=== PATIENT | male | born 1935 | race Caucasian/White ===

== ENCOUNTER 2020-04-07 15:24 | Inpatient (IN) ==
[2020-04-07] MEDS ORDERED: FAMOTIDINE 20MG IV PUSH 20 MG/5 ML SYR IV STA (15:44)
[2020-04-07] MEDS ORDERED: PANTOprazole 40 MG in SYRINGE 0 ML IV ONE (15:44)
[2020-04-07] MEDS ORDERED: ONDANSETRON INJ 2 MG/ML 2 ML VIAL IV STA (15:44)
[2020-04-07] MEDS ORDERED: SODIUM CHLORIDE 0.9% 500 ML IV SCH (15:45)
[2020-04-07 15:56] LABS: Basophils # (auto) 0.05 K/uL (0-0.2); Basophils % (auto) 0.4 %; Eosinophils # (auto) 0.07 K/uL (0-0.5); Eosinophils % (auto) 0.5 %; Hematocrit (blood only) 27.3 % (42-52); Hemoglobin 9.3 g/dL (14.0-18.0); Immature Granulocytes # (auto) 0.08 K/uL (0.00-0.02); Immature Granulocytes % (auto) 0.6 %; Lymphocytes % (auto) 19.2 %; Mean Corpuscular Hemoglobin 32.4 pg (25-34); Mean Corpuscular Hgb Conc 34.1 g/dL (32-36); Mean Corpuscular Volume 95.1 fL (80-100); Mean Platelet Volume 10.4 fL (7.4-10.4); Monocytes # (auto) 0.87 K/uL (0.11-0.59); Monocytes % (auto) 6.7 %; Neutrophils # (auto) 9.45 K/uL (1.4-6.5); Neutrophils % (auto) 72.6 %; Platelet Count 216 K/uL (130-400); RDW Coefficient of Variation 15.4 % (11.5-14.5); RDW Standard Deviation 53.5 fL (36.4-46.3); Red Blood Count 2.87 M/uL (4.7-6.1); White Blood Count 13.02 K/uL (4.8-10.8)
[2020-04-07 16:06] LABS: INR 1.2 (0.9-1.1); Partial Thromboplastin Ratio 0.9; Partial Thromboplastin Time 25.1 Seconds (21.0-31.0); Prothrombin Time 12.4 Seconds (9.0-12.0)
--- NOTE | 2020-04-07 16:27 | Emergency Department Note ---
Impression & Plan Acute upper gastrointestinal bleeding, Anemia, Elevated troponin I level ED Provider Note NAME: DAKOTA DELATORRE AGE: 85 SEX: M : 1935 ARRIVES VIA: Ambulance INFORMANT: Patient, ED PROVIDER(S): Todd Beckman DO CHIEF COMPLAINT: Vomiting HPI: The patient is an 85-year-old male who presented to the emergency department for upper abdominal pain and vomiting blood. The patient was scheduled for a procedure by the [facility] clinic. He presents emergency department today after having an episode of emesis x2 and also hematemesis. The patient denies having any nausea or vomiting at this time. He denies having any chest pain or difficulty breathing. He has been noticing that he is been getting short of breath with exertion. He denies having any black or bloody bowel movements. He is not been using [id number] medication such as NSAIDs at this time. The patient states his pain is mild at this time. ROS: See above HPI for pertinent positives & negatives. A total of 10 systems reviewed and were otherwise negative. PAST MEDICAL HISTORY: See Below PAST SURGICAL HISTORY: See Below FAMILY HISTORY: See Below SOCIAL HISTORY: See Below HOME MEDICATIONS: See Below ALLERGIES: See Below VITALS: See Below PHYSICAL EXAMINATION: GENERAL: Patient is awake alert in no acute distress patient is resting comfortably and showing no signs of anxiety EYES: The conjunctivae are pale. The pupils are round and reactive. EARS, NOSE, MOUTH AND THROAT: The nose is without any evidence of any deformity. NECK: The neck is nontender and supple. RESPIRATORY: Normal respiratory effort is noted there is no evidence of wheezing rhonchi or rales CARDIOVASCULAR: Regular rate and rhythm noted there no murmurs rubs or gallops normal S1 normal S2. GASTROINTESTINAL: The abdomen is soft. Abdomen is nontender. Rectal exam revealed brown stool which was strongly heme positive. MUSCULOSKELETAL/EXTREMITIES: There is no evidence of gross deformity full range of motion is noted in the hips and shoulders. SKIN: There is no obvious evidence of any rash. Skin was pale cool and dry. There is pedal edema bilaterally. NEUROLOGIC: Patient is awake alert and oriented x3 strength is symmetric patellar reflexes are 2+ bilaterally MEDICAL DECISION MAKING: The patient is an 85-year-old male who presented to the emergency department after having an episode of hematemesis. He was experiencing upper abdominal pain and was following up with the DC clinic. He was scheduled for an ultrasound. The patient had an episode of hematemesis with clots prior to arrival. The patient was found to have heme positive stool. He was anemic. Initially he was tachycardic and treated with IV fluids. I discussed the patient's laboratory and radiographic studies with him. He was also treated with proton pump inhibitors and H2 blockers. He was feeling much better on subsequent reevaluation. Given his elevated troponin I do feel the patient may require inpatient management. For this reason I discussed his case with the on- call [facility]. They have agreed to evaluate the patient in the emergency department for further management and disposition. Triage Nursing notes reviewed. Prior medical records reviewed Vital Signs: reviewed and remarkable for tachycardia. Differential diagnosis: Diverticulosis, AVM, coagulopathy, colitis, inflammatory bowel disease, malignancy, Rolanda-Griffith tear, esophagitis, peptic ulcer disease, variceal bleed, gastritis, epistaxis, fissure, hemorrhoids, as well as other pathologies. ER treatment provided: See below Diagnostics interpreted by me: ECG: EKG was obtained in the emergency department. My interpretation is normal sinus rhythm at 83 bpm. There is no ectopy. There is no acute ST segment abnormalities. There is no previous tracing for comparison. Cardiac Monitoring: An order was placed for continuous cardiac monitoring. The monitor shows a rate of 98 with sinus rhythm. Laboratory studies: As stated above and show below. Imaging studies: See below Consultation(s): 1720: I discussed this case with Dee who is on-call for the [facility] group. Past Med/Surg History Surgical History History of hip replacement Social History (Updated 04/07/20 @ 18:05 by Sharon Kumar PA-C) Smoking Status: Never smoker Hx Alcohol Use: No Hx Substance Use: No Preferred Language: Czech Communication Ability: Effective Milieu Counselor Required: Yes Current Living Situation: Spouse Feels Safe at Home: Yes Safety Concerns: Feels Safe At This Time Allergies Allergies Allergy/AdvReac Type Severity Reaction Status Date / Time No Known Allergies Allergy Unverified 04/07/20 19:09 Home Meds Home Medications Medication Instructions Recorded Confirmed No Known Home Medications 04/07/20 04/07/20 Results & Data (ED) Vital Signs Vital Signs - 24 hr 04/07/20 15:31 04/07/20 15:38 04/07/20 15:40 Temperature Temperature Source Pulse Rate 81 83 83 Pulse Rate from SpO2 Sensor 85 83 83 Respiratory Rate 15 17 18 Respiratory Effort / Characteristics Respiratory Depth Blood Pressure 101/59 L Blood Pressure Mean 73 Pulse Oximetry 100 98 97 Oxygen Delivery Method Sepsis Recent Fever Within 48 Hours Sepsis New/Unexplained Change in Mental Status Sepsis Action Taken by Nursing 04/07/20 15:45 04/07/20 15:50 04/07/20 15:53 Temperature 36.7 C Temperature Source Oral Pulse Rate 80 78 Pulse Rate from SpO2 Sensor 78 Respiratory Rate 20 15 Respiratory Effort / Characteristics Non-Labored Respiratory Depth Normal Blood Pressure 101/59 L Blood Pressure Mean 73 Pulse Oximetry 100 99 97 Oxygen Delivery Method Room Air Room Air Sepsis Recent Fever Within 48 Hours No Sepsis New/Unexplained Change in Mental Status No Sepsis Action Taken by Nursing No Action Required 04/07/20 16:00 04/07/20 16:10 04/07/20 16:20 Temperature Temperature Source Pulse Rate 89 82 81 Pulse Rate from SpO2 Sensor 81 Respiratory Rate 20 20 15 Respiratory Effort / Characteristics Respiratory Depth Blood Pressure 114/57 L Blood Pressure Mean 76 Pulse Oximetry 98 Oxygen Delivery Method Sepsis Recent Fever Within 48 Hours Sepsis New/Unexplained Change in Mental Status Sepsis Action Taken by Nursing 04/07/20 16:22 04/07/20 16:30 04/07/20 16:31 Temperature Temperature Source Pulse Rate 79 82 82 Pulse Rate from SpO2 Sensor 79 83 82 Respiratory Rate 15 18 18 Respiratory Effort / Characteristics Respiratory Depth Blood Pressure 114/57 L 111/62 Blood Pressure Mean 76 86 Pulse Oximetry 98 99 98 Oxygen Delivery Method Sepsis Recent Fever Within 48 Hours Sepsis New/Unexplained Change in Mental Status Sepsis Action Taken by Nursing 04/07/20 16:40 04/07/20 16:50 04/07/20 17:00 Temperature Temperature Source Pulse Rate 83 80 Pulse Rate from SpO2 Sensor 80 Respiratory Rate 19 20 16 Respiratory Effort / Characteristics Respiratory Depth Blood Pressure 120/66 Blood Pressure Mean 80 Pulse Oximetry 98 Oxygen Delivery Method Sepsis Recent Fever Within 48 Hours Sepsis New/Unexplained Change in Mental Status Sepsis Action Taken by Nursing 04/07/20 17:01 04/07/20 17:10 04/07/20 17:20 Temperature Temperature Source Pulse Rate 80 79 78 Pulse Rate from SpO2 Sensor 80 81 81 Respiratory Rate 16 14 21 Respiratory Effort / Characteristics Respiratory Depth Blood Pressure Blood Pressure Mean Pulse Oximetry 97 97 97 Oxygen Delivery Method Sepsis Recent Fever Within 48 Hours Sepsis New/Unexplained Change in Mental Status Sepsis Action Taken by Nursing 04/07/20 17:30 04/07/20 17:31 04/07/20 17:40 Temperature Temperature Source Pulse Rate 85 85 86 Pulse Rate from SpO2 Sensor 88 85 92 H Respiratory Rate 20 22 22 Respiratory Effort / Characteristics Respiratory Depth Blood Pressure 133/72 Blood Pressure Mean 90 Pulse Oximetry 94 99 Oxygen Delivery Method Sepsis Recent Fever Within 48 Hours Sepsis New/Unexplained Change in Mental Status Sepsis Action Taken by Nursing 04/07/20 17:50 Temperature Temperature Source Pulse Rate 92 H Pulse Rate from SpO2 Sensor 87 Respiratory Rate 24 Respiratory Effort / Characteristics Respiratory Depth Blood Pressure Blood Pressure Mean Pulse Oximetry Oxygen Delivery Method Sepsis Recent Fever Within 48 Hours Sepsis New/Unexplained Change in Mental Status Sepsis Action Taken by Snf Medications Current Medication List: was personally reviewed by me Laboratory Data Attestation: I reviewed the patient's lab results. Result diagrams: 04/07/20 21:55 04/07/20 16:07 Lab Results 04/07/20 04/07/20 04/07/20 Range/Units 15:34 15:34 16:07 WBC 13.02 H (4.8-10.8) K/uL RBC 2.87 L (4.7-6.1) M/uL Hgb 9.3 L (14.0-18.0) g/dL Hct 27.3 L (42-52) % MCV 95.1 (80-100) fL MCH 32.4 (25-34) pg MCHC 34.1 (32-36) g/dL RDW Std Deviation 53.5 H (36.4-46.3) fL RDW Coeff of Enma 15.4 H (11.5-14.5) % Plt Count 216 (130-400) K/uL MPV 10.4 (7.4-10.4) fL Immature Gran % (Auto) 0.6 % Neut % (Auto) 72.6 % Lymph % (Auto) 19.2 % Gilmer % (Auto) 6.7 % Eos % (Auto) 0.5 % Baso % (Auto) 0.4 % Neut # (Auto) 9.45 H (1.4-6.5) K/uL Lymph # (Auto) 2.50 (1.2-3.4) K/uL Gilmer # (Auto) 0.87 H (0.11-0.59) K/uL Eos # (Auto) 0.07 (0-0.5) K/uL Baso # (Auto) 0.05 (0-0.2) K/uL Immature Gran # (Auto) 0.08 H (0.00-0.02) K/uL PT 12.4 H (9.0-12.0) Seconds INR 1.2 H (0.9-1.1) APTT 25.1 (21.0-31.0) Seconds PTT Ratio 0.9 Sodium (136-145) mmol/L Potassium (3.5-5.1) mmol/L Chloride (98-107) mmol/L Carbon Dioxide (21-32) mmol/L Anion Gap (3-11) BUN (7-18) mg/dl Creatinine (0.6-1.4) mg/dl Est Cr Clr Drug Dosing ml/min Est GFR ( Amer) Est GFR (Non-Af Amer) BUN/Creatinine Ratio (10-20) Glucose (70-99) mg/dl Calcium (8.5-10.1) mg/dl Total Bilirubin (0.2-1) mg/dl AST (15-37) U/L ALT (12-78) U/L Alkaline Phosphatase (45-117) U/L Troponin I (0-0.045) ng/ml Total Protein (6.4-8.2) gm/dl Albumin (3.4-5.0) gm/dl Globulin (2.5-4.0) gm/dl Albumin/Globulin Ratio (0.9-2) Lipase (73-393) U/L Blood Type A Positive Antibody Screen POSITIVE A Antibody Identification Anti-E Antigen Identification E Antigen - NEGATIVE 04/07/20 Range/Units 16:07 WBC (4.8-10.8) K/uL RBC (4.7-6.1) M/uL Hgb (14.0-18.0) g/dL Hct (42-52) % MCV (80-100) fL MCH (25-34) pg MCHC (32-36) g/dL RDW Std Deviation (36.4-46.3) fL RDW Coeff of Enma (11.5-14.5) % Plt Count (130-400) K/uL MPV (7.4-10.4) fL Immature Gran % (Auto) % Neut % (Auto) % Lymph % (Auto) % Gilmer % (Auto) % Eos % (Auto) % Baso % (Auto) % Neut # (Auto) (1.4-6.5) K/uL Lymph # (Auto) (1.2-3.4) K/uL Gilmer # (Auto) (0.11-0.59) K/uL Eos # (Auto) (0-0.5) K/uL Baso # (Auto) (0-0.2) K/uL Immature Gran # (Auto) (0.00-0.02) K/uL PT (9.0-12.0) Seconds INR (0.9-1.1) APTT (21.0-31.0) Seconds PTT Ratio Sodium 138 (136-145) mmol/L Potassium 4.7 (3.5-5.1) mmol/L Chloride 109 H (98-107) mmol/L Carbon Dioxide 23 (21-32) mmol/L Anion Gap 6.0 (3-11) BUN 43 H (7-18) mg/dl Creatinine 2.80 H (0.6-1.4) mg/dl Est Cr Clr Drug Dosing 18.2 ml/min Est GFR ( Amer) 22.6 Est GFR (Non-Af Amer) 19.5 BUN/Creatinine Ratio 15.4 (10-20) Glucose 107 H (70-99) mg/dl Calcium 7.8 L (8.5-10.1) mg/dl Total Bilirubin 0.7 (0.2-1) mg/dl AST 20 (15-37) U/L ALT 16 (12-78) U/L Alkaline Phosphatase 98 (45-117) U/L Troponin I 0.273 H* (0-0.045) ng/ml Total Protein 6.3 L (6.4-8.2) gm/dl Albumin 2.0 L (3.4-5.0) gm/dl Globulin 4.3 H (2.5-4.0) gm/dl Albumin/Globulin Ratio 0.5 L (0.9-2) Lipase 115 (73-393) U/L Blood Type Antibody Screen Antibody Identification Antigen Identification Administered Medications Pantoprazole Sodium 40 mg/ (Syringe) 10 mls @ 5 mls/min IV BID TOMASZ Stop: 05/07/20 20:59 Last Admin: 04/07/20 22:07 Dose: 5 mls/min Documented by: [id number] Sodium Chloride (Nss 1000ml) 1,000 mls @ 125 mls/hr IV .Q8H TOMASZ Stop: 05/07/20 19:51 Last Admin: 04/07/20 20:08 Dose: 125 mls/hr Documented by: [id number] Discontinued Medications Sodium Chloride (Nss) 500 mls @ 999 mls/hr IV .Q31M TOMASZ Stop: 04/07/20 16:15 Last Infusion: 04/07/20 17:03 Dose: 0 mls/hr Documented by: [id number] Admin: 04/07/20 16:19 Dose: 999 mls/hr Documented by: [id number] Famotidine (Pepcid 20mg Iv Push) 20 mg in 5 mls @ 2.5 mls/min IV NOW STA Stop: 04/07/20 15:45 Last Admin: 04/07/20 16:19 Dose: 2.5 mls/min Documented by: [id number] Pantoprazole Sodium 40 mg/ (Syringe) 10 mls @ 5 mls/min IV NOW ONE Stop: 04/07/20 15:45 Last Admin: 04/07/20 16:25 Dose: 5 mls/min Documented by: [id number] Ondansetron HCl (Ondansetron Inj 2 Mg/Ml 2 Ml Vial) 4 mg IV ONE STA Stop: 04/07/20 15:45 Last Admin: 04/07/20 16:19 Dose: 4 mg Documented by: [id number] Imaging Data Radiologist's Impression: KUB CLINICAL HISTORY: GI bleed. COMPARISON STUDY: None. FINDINGS: Left hip arthroplasty is partially imaged. Bowel gas pattern is normal. Calcified densities projecting over the right upper quadrant could reflect gallstones or a porcelain gallbladder. There is a possible 3 mm left renal calculus. IMPRESSION: 1. No evidence for a bowel obstruction. 2. Calcified densities which project over the right upper quadrant which could reflect gallstones and/or a porcelain gallbladder. 3. Suspected 3 mm left renal calculus. ACT 112: Negative or not required by law. Electronically signed by: Hai Mendoza M.D. 04/07/2020 4:51 PM Dictated: 04/07/201648 Transcribed: 04/07/201648 XR chest 1V portable CLINICAL HISTORY: GI bleed. COMPARISON STUDY: No previous studies for comparison. FINDINGS: Lung volumes are normal. Lungs are clear. There is no pneumothorax or pleural effusion. Cardiac size is at the upper limits of normal. Possible nipple shadow projects over the right lower lung.. Mediastinal contours are normal. There is no evidence for pulmonary edema. Incidental note is made of a partially visualized left humeral internal fixation. IMPRESSION: No acute cardiopulmonary findings. ACT 112: Negative or not required by law. Electronically signed by: Hai Mendoza M.D. 04/07/2020 4:49 PM Dictated: 04/07/201647 Transcribed: 04/07/201647 Blood Pressure Blood Pressure Findings: Normal blood pressure Discharge Plan Visit Data Chief Complaint: GI Bleed ED Provider: Todd Beckman Discharge Problem: Acute upper gastrointestinal bleeding, Anemia, Elevated troponin I level Patient Disposition: Admitted As Inpatient Condition: Good Discharge Instructions Interventions: ED Discharge Assessment Last Done: 04/07/20 19:09
[2020-04-07 16:40] LABS: BUN Creatinine Ratio 15.4 (10-20); Calcium 7.8 mg/dl (8.5-10.1); Creatinine Clr Calc Pharmacy 18.2 ml/min; Est GFR (African American) 22.6; Est GFR (Non-African American) 19.5; Potassium 4.7 mmol/L (3.5-5.1)
[2020-04-07 16:48] LABS: Albumin Globulin Ratio 0.5 (0.9-2); Bilirubin,Total 0.7 mg/dl (0.2-1); Globulin 4.3 gm/dl (2.5-4.0); Total Protein 6.3 gm/dl (6.4-8.2); Troponin I 0.273 ng/ml (0-0.045)
--- NOTE | 2020-04-07 16:48 | Electrocardiogram Report ---
Test Reason : Blood Pressure : / mmHG Vent. Rate : 083 BPM Atrial Rate : 083 BPM P-R Int : 170 ms QRS Dur : 096 ms QT Int : 432 ms P-R-T Axes : 066 -59 050 degrees QTc Int : 507 ms Normal sinus rhythm with sinus arrhythmia Incomplete right bundle branch block Left anterior fascicular block Poor R wave progression, consider anterior MD vs. lead placement vs. LVH Abnormal ECG No previous ECGs available Confirmed by Ney Marie ([id number]) on 04/07/2020 4:48:16 PM Referred By: Confirmed By:Ney Marie
--- NOTE | 2020-04-07 16:50 | XRay Report ---
XR chest 1V portable CLINICAL HISTORY: GI bleed. COMPARISON STUDY: No previous studies for comparison. FINDINGS: Lung volumes are normal. Lungs are clear. There is no pneumothorax or pleural effusion. Car diac size is at the upper limits of normal. Possible nipple shadow projects over the right lower lung .. Mediastinal contours are normal. There is no evidence for pulmonary edema. Incidental note is made of a partially visualized left humeral internal fixation. IMPRESSION: No acute cardiopulmonary findings. ACT 112: Negative or not required by law. Electronically signed by: Hai Mendoza M.D. 04/07/2020 4:49 PM
--- NOTE | 2020-04-07 16:52 | XRay Report ---
KUB CLINICAL HISTORY: GI bleed. COMPARISON STUDY: None. FINDINGS: Left hip arthroplasty is partially imaged. Bowel gas pattern is normal. Calcified densities projecting over the right upper quadrant could reflect gallstones or a porcelain gallbladder. There is a possible 3 mm left renal calculus. IMPRESSION: 1. No evidence for a bowel obstruction. 2. Calcified densities which project over the right upper quadrant which could reflect gallstones and /or a porcelain gallbladder. 3. Suspected 3 mm left renal calculus. ACT 112: Negative or not required by law. Electronically signed by: Hai Mendoza M.D. 04/07/2020 4:51 PM
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
[2020-04-07] MEDS ORDERED: ACETAMINOPHEN 325 MG TAB PO PRN (19:52)
[2020-04-07] MEDS ORDERED: ONDANSETRON INJ 2 MG/ML 2 ML VIAL IV PRN (19:52)
[2020-04-07] MEDS ORDERED: LORazepam 0.5 MG TAB PO PRN (19:52)
[2020-04-07] MEDS: SODIUM CHLORIDE 0.9% 1000ML 1,000 ML IV SCH (20:08)
[2020-04-07] MEDS: PANTOprazole 40 MG in SYRINGE 0 ML IV SCH (22:07)
[2020-04-07 22:11] LABS: Hematocrit (blood only) 23.5 % (42-52); Hemoglobin 8.1 g/dL (14.0-18.0)
[2020-04-08] MEDS: SODIUM CHLORIDE 0.9% 1000ML 1,000 ML IV SCH ×2 (03:41→11:32)
[2020-04-08 05:03] LABS: Hematocrit (blood only) 22.9 % (42-52); Hemoglobin 7.9 g/dL (14.0-18.0); Mean Corpuscular Hgb Conc 34.5 g/dL (32-36); Mean Corpuscular Volume 92.7 fL (80-100); Mean Platelet Volume 10.6 fL (7.4-10.4); Platelet Count 186 K/uL (130-400); RDW Coefficient of Variation 15.2 % (11.5-14.5); RDW Standard Deviation 51.8 fL (36.4-46.3); Red Blood Count 2.47 M/uL (4.7-6.1); White Blood Count 12.95 K/uL (4.8-10.8)
[2020-04-08 05:36] LABS: Albumin Globulin Ratio 0.5 (0.9-2); BUN Creatinine Ratio 19.3 (10-20); Bilirubin,Total 0.5 mg/dl (0.2-1); Calcium 7.5 mg/dl (8.5-10.1); Creatinine Clr Calc Pharmacy 19.5 ml/min; Est GFR (African American) 24.9; Est GFR (Non-African American) 21.5; Globulin 3.8 gm/dl (2.5-4.0); Magnesium 1.9 mg/dl (1.8-2.4); Phosphorus 3.3 mg/dl (2.5-4.9); Potassium 4.2 mmol/L (3.5-5.1); Total Protein 5.8 gm/dl (6.4-8.2)
[2020-04-08 05:52] LABS: Troponin I 0.273 ng/ml (0-0.045)
[2020-04-08 05:53] LABS: Estimated Average Glucose 120 mg/dl; Hemoglobin A1C 5.8 % (4.5-5.6)
[2020-04-08] MEDS: PANTOprazole 40 MG in SYRINGE 0 ML IV SCH ×2 (08:11→20:25)
--- NOTE | 2020-04-08 08:55 | Electrocardiogram Report ---
Test Reason : Blood Pressure : / mmHG Vent. Rate : 102 BPM Atrial Rate : 113 BPM P-R Int : 000 ms QRS Dur : 096 ms QT Int : 404 ms P-R-T Axes : 000 -52 043 degrees QTc Int : 526 ms Atrial fibrillation with rapid ventricular response Incomplete right bundle branch block Left anterior fascicular block Prolonged QT Abnormal ECG When compared with ECG of 07-APR-2020 15:42, Atrial fibrillation has replaced Sinus rhythm Precordial R wave voltage increased Confirmed by Ney Marie ([id number]) on 04/08/2020 8:55:17 AM Referred By: REFERRED SELF Confirmed By:Ney Marie
[2020-04-08] MEDS ORDERED: METOCLOPRAMIDE HCL INJ 5 MG/ML 2 ML VIAL IV STA (09:26)
--- NOTE | 2020-04-08 09:35 | XCELERA ---
[id number]
--- NOTE | 2020-04-08 09:41 | Hospitalist Progress Note ---
Date of Service April 08, 2020 Assessment & Plan (1) GI bleed: With multiple episodes of hematemesis that started after drinking large amount of water for a renal US. 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 Horowitz for EGD today -give one dose Reglan 10mg IV now to clear out stomach as per GI rec -Keep the patient n.p.o. -IV Zofran PRN (2) Elevated troponin: - Elevated at 0.273/0.2/0.2 x 3 ECG without ischemic changes Has a h/o elevated trop, has never had cardiac cath or stress test, has no angina ever and is active - Check 2D echo -with rapid Aflutter/fib new onset here -prob demand ischemia in setting of CKD (3) CKD (chronic kidney disease): -History of such, [facility], had renal ultrasound completed on day of admission as outpt as patient reports worsening kidney function. He has not had discussion regarding fistula placement or dialysis. - Cr. 2.80, BUN 43 on admission, now improved with IVFs to cut off man 2.59 - Baseline unknown as no other records available --Avoid nephrotoxins -renally dose meds when appropriate -follow BMP (4) Nephrolithiasis: - Hx of such - pt reports having large stone in the kidney which hasn't moved in location, as to why he had US the day of admissino (5) Atrial flutter with rapid ventricular response: new onset here, rates 110s, asymptomatic, HD stable -check ECHO, follow on tele -do not want to start beta blockade given ongoing acute GI bleed and certainly no AC at this time Cardiology consult (6) Acute blood loss anemia: as above follow CBC again today at 1200 transfuse if <7 or develops angina or hypotension with mild elevated trop but stable it seems from previous (7) Prediabetes: A1C here 5.8% no need for accuchecks or insulin (8) Abnormal gallbladder x-ray: gallstones vs porcelain GB seen on KUB, LFTs normal, no abd pain follow as outpt (9) Hypoalbuminemia: - 2.0 on admission - pt reports typically fine diet, discuss further after acute GI sx improved, initiation of boost once allowed a diet (10) DVT prophylaxis: - teds, scds, no chemical anticoagulation in setting of GI bleed CODE: DNR Dispo: From home, continued stay Admission and Anticipated Discharge Date Admission Date: April 07, 2020 Subjective Feeling better, no further vomiting/hematemesis since admission. No melena and no BM since admission. Denies heartburn or abd pain. No CP or SOB, not lightheaded. Denies ASA or NSAID use, no h/o GERD. Never had EGD. Last colonoscopy was 30 years ago and no h/o rectal bleeding. Tele with Afib and flutter overnight rates low 100s. Pt unaware of heart palpitations and has never had Afib/flutter as far as he knows Review of Systems Review of Systems: All systems reviewed & are unremarkable except as noted in HPI & below chronic clear rhinorrhea No fevers/chills, no cough or cold symptoms Physical Exam Constitutional: WD/WN, vitals as above Eyes: + anicteric sclerae ENMT: external ear and nose normal, oropharynx normal Neck: trachea midline, no thyromegaly Respiratory: normal respiratory effort, lungs clear to auscultation Cardiovascular: Rate/Rhythm: + tachycardic and + irregularly irregular Heart Sounds: no murmur Vessels: no JVD Extremities: no edema Chest (Breasts): Chest: normal inspection of chest Gastrointestinal (Abdomen): normal bowel sounds, soft, nontender, no hepatosplenomegaly Musculoskeletal: Extremities: extremities normal to inspection; no cyanosis and no clubbing Skin: no rashes, warm and dry Neurologic: moves all extremities and awake; no focal motor deficits Psychiatric: A+Ox3, euthymic affect Lymphatic: no lymphedema Results & Data Results & Data ([facility]) Vital Signs (Past 12 Hours) Vital Signs Temp Pulse Pulse Pulse Resp BP Pulse Ox 04/08/20 07:39 36.8 C 107 H 18 112/68 97 04/08/20 05:05 97 H 18 102/63 97 04/08/20 03:59 36.8 C 79 18 105/59 L 98 04/07/20 23:00 36.7 C 82 82 18 110/65 97 Laboratory Results 04/08/20 04/08/20 04/08/20 Range/Units 04:33 04:33 04:33 WBC 12.95 H (4.8-10.8) K/uL RBC 2.47 L (4.7-6.1) M/uL Hgb 7.9 L (14.0-18.0) g/dL Hct 22.9 L (42-52) % MCV 92.7 (80-100) fL MCH 32.0 (25-34) pg MCHC 34.5 (32-36) g/dL RDW Std Deviation 51.8 H (36.4-46.3) fL RDW Coeff of Enma 15.2 H (11.5-14.5) % Plt Count 186 (130-400) K/uL MPV 10.6 H (7.4-10.4) fL Immature Gran % (Auto) % Neut % (Auto) % Lymph % (Auto) % [place] % (Auto) % Eos % (Auto) % Baso % (Auto) % Neut # (Auto) (1.4-6.5) K/uL Lymph # (Auto) (1.2-3.4) K/uL [place] # (Auto) (0.11-0.59) K/uL Eos # (Auto) (0-0.5) K/uL Baso # (Auto) (0-0.2) K/uL Immature Gran # (Auto) (0.00-0.02) K/uL PT (9.0-12.0) Seconds INR (0.9-1.1) APTT (21.0-31.0) Seconds PTT Ratio Sodium 140 (136-145) mmol/L Potassium 4.2 (3.5-5.1) mmol/L Chloride 111 H (98-107) mmol/L Carbon Dioxide 23 (21-32) mmol/L Anion Gap 6.0 (3-11) BUN 50 H (7-18) mg/dl Creatinine 2.59 H (0.6-1.4) mg/dl Est Cr Clr Drug Dosing 19.5 ml/min Est GFR ( Amer) 24.9 Est GFR (Non-Af Amer) 21.5 BUN/Creatinine Ratio 19.3 (10-20) Glucose 77 (70-99) mg/dl Estimat Average Glucose 120 mg/dl Hemoglobin A1c 5.8 H (4.5-5.6) % Calcium 7.5 L (8.5-10.1) mg/dl Phosphorus 3.3 (2.5-4.9) mg/dl Magnesium 1.9 (1.8-2.4) mg/dl Total Bilirubin 0.5 (0.2-1) mg/dl AST 17 (15-37) U/L ALT 14 (12-78) U/L Alkaline Phosphatase 85 (45-117) U/L Troponin I 0.273 H* (0-0.045) ng/ml Total Protein 5.8 L (6.4-8.2) gm/dl Albumin 2.0 L (3.4-5.0) gm/dl Globulin 3.8 (2.5-4.0) gm/dl Albumin/Globulin Ratio 0.5 L (0.9-2) Triglycerides 114 (0-150) mg/dl Cholesterol 118 (0-200) mg/dl LDL Cholesterol, Calc 66 mg/dl VLDL Cholesterol, Calc 23 mg/dl HDL Cholesterol 29 mg/dl Cholesterol/HDL Ratio 4 Lipase (73-393) U/L Blood Type Antibody Screen Antibody Identification Antibody ID Comment Antigen Identification 04/07/20 04/07/20 04/07/20 Range/Units 21:55 21:55 16:07 WBC (4.8-10.8) K/uL RBC (4.7-6.1) M/uL Hgb 8.1 L (14.0-18.0) g/dL Hct 23.5 L (42-52) % MCV (80-100) fL MCH (25-34) pg MCHC (32-36) g/dL RDW Std Deviation (36.4-46.3) fL RDW Coeff of Enma (11.5-14.5) % Plt Count (130-400) K/uL MPV (7.4-10.4) fL Immature Gran % (Auto) % Neut % (Auto) % Lymph % (Auto) % [place] % (Auto) % Eos % (Auto) % Baso % (Auto) % Neut # (Auto) (1.4-6.5) K/uL Lymph # (Auto) (1.2-3.4) K/uL [place] # (Auto) (0.11-0.59) K/uL Eos # (Auto) (0-0.5) K/uL Baso # (Auto) (0-0.2) K/uL Immature Gran # (Auto) (0.00-0.02) K/uL PT (9.0-12.0) Seconds INR (0.9-1.1) APTT (21.0-31.0) Seconds PTT Ratio Sodium 138 (136-145) mmol/L Potassium 4.7 (3.5-5.1) mmol/L Chloride 109 H (98-107) mmol/L Carbon Dioxide 23 (21-32) mmol/L Anion Gap 6.0 (3-11) BUN 43 H (7-18) mg/dl Creatinine 2.80 H (0.6-1.4) mg/dl Est Cr Clr Drug Dosing 18.2 ml/min Est GFR ( Amer) 22.6 Est GFR (Non-Af Amer) 19.5 BUN/Creatinine Ratio 15.4 (10-20) Glucose 107 H (70-99) mg/dl Estimat Average Glucose mg/dl Hemoglobin A1c (4.5-5.6) % Calcium 7.8 L (8.5-10.1) mg/dl Phosphorus (2.5-4.9) mg/dl Magnesium (1.8-2.4) mg/dl Total Bilirubin 0.7 (0.2-1) mg/dl AST 20 (15-37) U/L ALT 16 (12-78) U/L Alkaline Phosphatase 98 (45-117) U/L Troponin I 0.253 H* 0.273 H* (0-0.045) ng/ml Total Protein 6.3 L (6.4-8.2) gm/dl Albumin 2.0 L (3.4-5.0) gm/dl Globulin 4.3 H (2.5-4.0) gm/dl Albumin/Globulin Ratio 0.5 L (0.9-2) Triglycerides (0-150) mg/dl Cholesterol (0-200) mg/dl LDL Cholesterol, Calc mg/dl VLDL Cholesterol, Calc mg/dl HDL Cholesterol mg/dl Cholesterol/HDL Ratio Lipase 115 (73-393) U/L Blood Type Antibody Screen Antibody Identification Antibody ID Comment Antigen Identification 04/07/20 04/07/20 04/07/20 Range/Units 16:07 15:34 15:34 WBC 13.02 H (4.8-10.8) K/uL RBC 2.87 L (4.7-6.1) M/uL Hgb 9.3 L (14.0-18.0) g/dL Hct 27.3 L (42-52) % MCV 95.1 (80-100) fL MCH 32.4 (25-34) pg MCHC 34.1 (32-36) g/dL RDW Std Deviation 53.5 H (36.4-46.3) fL RDW Coeff of Enma 15.4 H (11.5-14.5) % Plt Count 216 (130-400) K/uL MPV 10.4 (7.4-10.4) fL Immature Gran % (Auto) 0.6 % Neut % (Auto) 72.6 % Lymph % (Auto) 19.2 % [place] % (Auto) 6.7 % Eos % (Auto) 0.5 % Baso % (Auto) 0.4 % Neut # (Auto) 9.45 H (1.4-6.5) K/uL Lymph # (Auto) 2.50 (1.2-3.4) K/uL [place] # (Auto) 0.87 H (0.11-0.59) K/uL Eos # (Auto) 0.07 (0-0.5) K/uL Baso # (Auto) 0.05 (0-0.2) K/uL Immature Gran # (Auto) 0.08 H (0.00-0.02) K/uL PT 12.4 H (9.0-12.0) Seconds INR 1.2 H (0.9-1.1) APTT 25.1 (21.0-31.0) Seconds PTT Ratio 0.9 Sodium (136-145) mmol/L Potassium (3.5-5.1) mmol/L Chloride (98-107) mmol/L Carbon Dioxide (21-32) mmol/L Anion Gap (3-11) BUN (7-18) mg/dl Creatinine (0.6-1.4) mg/dl Est Cr Clr Drug Dosing ml/min Est GFR ( Amer) Est GFR (Non-Af Amer) BUN/Creatinine Ratio (10-20) Glucose (70-99) mg/dl Estimat Average Glucose mg/dl Hemoglobin A1c (4.5-5.6) % Calcium (8.5-10.1) mg/dl Phosphorus (2.5-4.9) mg/dl Magnesium (1.8-2.4) mg/dl Total Bilirubin (0.2-1) mg/dl AST (15-37) U/L ALT (12-78) U/L Alkaline Phosphatase (45-117) U/L Troponin I (0-0.045) ng/ml Total Protein (6.4-8.2) gm/dl Albumin (3.4-5.0) gm/dl Globulin (2.5-4.0) gm/dl Albumin/Globulin Ratio (0.9-2) Triglycerides (0-150) mg/dl Cholesterol (0-200) mg/dl LDL Cholesterol, Calc mg/dl VLDL Cholesterol, Calc mg/dl HDL Cholesterol mg/dl Cholesterol/HDL Ratio Lipase (73-393) U/L Blood Type A Positive Antibody Screen POSITIVE A Antibody Identification Anti-E Antibody ID Comment Antigen Identification E Antigen - NEGATIVE PG Care Time/CCT Total # of Minutes Spent Total Time Spent with Patient: Total time spent is greater than 50% in coordination of care (as documented) at patient's floor/unit and/or counseling patient: Coding Level of Care Code 84424 Subseq Hosp Care Lvl 3 Diagnoses GI bleed K92.2 Elevated troponin R79.89 CKD (chronic kidney disease) N18.9 Nephrolithiasis N20.0 Atrial flutter with rapid ventricular response I48.92 Acute blood loss anemia D62 Prediabetes R73.03 Abnormal gallbladder x-ray R93.2 Hypoalbuminemia E88.09 DVT prophylaxis Z29.9
[2020-04-08] MEDS ORDERED: METOPROLOL TARTRATE 1 MG/ML VIAL IV PRN (09:58)
--- NOTE | 2020-04-08 11:15 | Gastrointestinal Consultation ---
Date of Consultation April 08, 2020 Assessment & Plan (1) GI bleed: -Will obtain cardiac clearance for anesthesia purposes --Keep NPO for EGD today if cleared by cardiology -Continue to monitor H/H -Continue IV Protonix 40 mg BID -Further recommendations pending results of further testing Thank you for allowing us to participate in the care of this patient. If you should have any further questions or concerns, do not hesitate to contact us at extension [phone] or [phone]. Supervising Physician Co-Signing Physician Notes Agree with Isabel Barrett, PAC Abd: Soft, NT, ND, +BS Continue current therapy Proceed with EGD History of Present Illness Reason for Consultation: hematemesis Attending Physician: Lori Zhang MD History of Present Illness Patient is an 85 yo male with no reported GI medical history. He reports that yesterday he had gone for a renal US and shortly after vomited what he describes as a clear substance. He then reports he got dizzy and developed nausea. He reports he then vomiting large, bright red clots of blood. He presented to the ED. His H/H is 7.9/22.9. He had several episodes of bloody emesis but this has not occurred since the afternoon of 04/07/20. He is admitted under hospitalist service and is currently on Protonix 40 mg BID. He is NPO. He denies ever having an endoscopy. He notes no use of NSAIDs recently. He denies pertinent GI family history. He has an elevated troponin. EKG shows A fib with RVR. He does have a history of chronic kidney disease. His current BUN/Cr are 50/2.59. He offers no further complaints at present. No further vomiting since yesterday. Denies melena or hematochezia. Allergies Allergy/AdvReac Type Severity Reaction Status Date / Time No Known Allergies Allergy Unverified 04/08/20 13:19 Home Medications Home Medications Medication Instructions Recorded Confirmed Type No Known Home Medications 04/07/20 04/07/20 History Patient History Medical History Abnormal gallbladder x-ray Atrial flutter with rapid ventricular response CKD (chronic kidney disease) Elevated troponin Hypoalbuminemia Nephrolithiasis Prediabetes Surgical History History of hip replacement Social History Smoking Status: Never smoker Hx Alcohol Use: No Hx Substance Use: No Preferred Language: Citizen Of [place] Communication Ability: Effective Supervisor [employer] Required: Yes Current Living Situation: Spouse Feels Safe at Home: Yes Safety Concerns: Feels Safe At This Time Review of Systems Constitutional: no fever and no chills Respiratory: no cough and no dyspnea Cardiovascular: no chest pain Gastrointestinal: + nausea, + vomiting and + hematemesis; no abdominal pain, no heartburn and no coffee ground emesis Musculoskeletal: no joint pain Integumentary: no rash Neurologic: no headache(s) Psychiatric: no acute complaints Physical Exam Constitutional: WD/WN, vitals as above Eyes: PERRL, conjunctivae normal, anicteric sclerae Neck: normal visual inspection Respiratory: normal respiratory effort Cardiovascular: RRR, no murmur, no edema Gastrointestinal (Abdomen): normal bowel sounds, soft, nontender, no hepatosplenomegaly Skin: no rashes Psychiatric: A+Ox3, euthymic affect Results & Data ([facility]) Vital Signs (Past 12 Hours) Vital Signs Temp Pulse Pulse Resp BP Pulse Ox 04/08/20 07:39 36.8 C 107 H 18 112/68 97 04/08/20 05:05 97 H 18 102/63 97 04/08/20 03:59 36.8 C 79 18 105/59 L 98 PG Care Time/CCT Total # of Minutes Spent Total Time Spent with Patient: Total time spent is greater than 50% in coordination of care (as documented) at patient's floor/unit and/or counseling patient: Coding Level of Care Code 28059 Initial Inpt Care Lvl 3 Diagnoses GI bleed K92.2 GI bleed type/associated pathology: unspecified gastrointestinal hemorrhage type (1) GI bleed GI bleed type/associated pathology: unspecified gastrointestinal hemorrhage type Qualified Code(s): K92.2 - Gastrointestinal hemorrhage, unspecified
[2020-04-08 12:01] LABS: Hematocrit (blood only) 22.7 % (42-52); Hemoglobin 7.9 g/dL (14.0-18.0); Mean Corpuscular Hemoglobin 32.2 pg (25-34); Mean Corpuscular Hgb Conc 34.8 g/dL (32-36); Mean Corpuscular Volume 92.7 fL (80-100); Platelet Count 199 K/uL (130-400); RDW Coefficient of Variation 15.3 % (11.5-14.5); RDW Standard Deviation 52.2 fL (36.4-46.3); Red Blood Count 2.45 M/uL (4.7-6.1); White Blood Count 9.37 K/uL (4.8-10.8)
--- NOTE | 2020-04-08 12:08 | Cardiology Consultation ---
Date of Consultation April 08, 2020 Assessment & Plan (1) New onset atrial fibrillation: Rhythm varies between atrial fibrillation and atrial flutter but ventricular response has not been particularly tachycardic. Given low normal blood pressure and lack of tachycardia, recommend gentle rate control with low doses of beta-dexter (metoprolol tartrate IV 2-3 mg every 1 hour PRN). If he does become hypotensive, could switch from intermittent IV metoprolol to esmolol drip. Not an anticoagulation candidate currently due to his acute GI bleed, however long-term anticoagulation would be recommended given CHADS-Vasc score of 2 (age) if his bleeding risk is not felt to be excessive (obviously, will depend upon pathology found on endoscopy). This can be addressed as an outpatient at the [facility]. (2) Elevated troponin I level: Per patient, this is chronically elevated, likely due to his chronic kidney disease as well as the presence of severe left ventricular hypertrophy (the reason for LVH is unclear, since he denies hypertension). He has no ischemic symptoms or ECG changes and his echocardiogram showed no wall motion abnormalities. No further work-up of chronically elevated troponin level. (3) Acute upper gastrointestinal bleeding: Per hospital service/GI. (4) Acute blood loss anemia: Contraindication to anticoagulation. (5) CKD (chronic kidney disease): Followed at the [facility]. History of Present Illness Reason for Consultation: New onset atrial fibrillation Requesting Physician: Lori Zhang MD Attending Physician: Lori Zhang MD History of Present Illness 85-year-old man with chronic kidney disease (creatinine 2.59) and chronically elevated troponin (per patient, felt secondary to his CKD) who has no significant cardiac history and was admitted 04/07/2020 with GI bleeding and a hemoglobin of 7.9. He developed asymptomatic new onset atrial fibrillation during this admission, his ventricular rate has only been minimally tachycardic (112 bpm at the highest). He denies any chest pain, dyspnea, subjective palpitations, lightheadedness, or any other cardiopulmonary symptoms. At the time of my evaluation, he was awaiting endoscopic evaluation of his GI bleed and was resting comfortable and had no complaints. Allergies Allergy/AdvReac Type Severity Reaction Status Date / Time No Known Allergies Allergy Unverified 04/07/20 19:09 Home Medications Home Medications Medication Instructions Recorded Confirmed Type No Known Home Medications 04/07/20 04/07/20 History Patient History Medical History Abnormal gallbladder x-ray Atrial flutter with rapid ventricular response CKD (chronic kidney disease) Elevated troponin Hypoalbuminemia Nephrolithiasis Prediabetes Surgical History History of hip replacement Social History Smoking Status: Never smoker Hx Alcohol Use: No Hx Substance Use: No Preferred Language: Sami Communication Ability: Effective Forensic Medical Examiner Required: Yes Current Living Situation: Spouse Feels Safe at Home: Yes Safety Concerns: Feels Safe At This Time Review of Systems Constitutional: + fatigue; no fever, no chills, no weight loss and no weight gain Eyes: no problem reported Ear, Nose, Mouth, Throat: no problem reported Respiratory: no cough and no dyspnea Cardiovascular: as per Subjective / HPI Gastrointestinal: as per Subjective / HPI, + vomiting and + hematemesis Musculoskeletal: no myalgia Integumentary: no rash and no new lesions Neurologic: no falls and no syncope Psychiatric: no problem reported Hematologic / Lymphatic: no easy bleeding and no easy bruising Physical Exam Physical Exam: Normal habitus elderly white male who appears comfortable. Afebrile. BP 108/67, pulse 96 and irregular, respirations 18 and unlabored. Skin: No generalized lesions. HEENT: Unremarkable. Neck: Jugular venous pulse at the clavicle at 90 degrees, no carotid bruits. Lungs: Mildly decreased breath sounds but clear bilaterally. Cardiac: Irregular rhythm, faint heart tones without obvious murmur or gallop. Abdomen: Soft nontender. Extremities: No edema, peripheral pulses intact. Neurologic: Normal affect and conversation, nonfocal. Results & Data ([facility]) Diagnostic Findings ECG on admission showed sinus rhythm with occasional PACs, incomplete right bundle branch block, left anterior fascicular block, and poor R wave progression. No prior ECG for comparison. ECG this morning showed atrial fibrillation with ventricular rate of 102 bpm and R wave progression had improved, otherwise no significant change from admission ECG. Echocardiogram today showed normal left ventricular size and systolic function (EF 65%) with no regional wall motion abnormalities. There was severe LVH and moderate RVH with mild tricuspid regurgitation and moderate pulmonary hypertension. Chest x-ray had no acute findings. Labs notable for hemoglobin of 8.1 today, white count 13, normal platelet count. Normal electrolytes, BUN 50, creatinine 2.59. Hemoglobin A1c 5.8%. Normal transaminases. 3 troponins were all within the 0.250.27 range (flat curve). Total cholesterol 118, LDL 66. PG Care Time/CCT Total # of Minutes Spent Total Time Spent with Patient: Total time spent is greater than 50% in coordination of care (as documented) at patient's floor/unit and/or counseling patient: Coding Level of Care Code 07793 Initial Inpt Care Lvl 3 Diagnoses New onset atrial fibrillation I48.91 Elevated troponin I level R79.89 Acute upper gastrointestinal bleeding K92.2 Acute blood loss anemia D62 CKD (chronic kidney disease) N18.9
--- NOTE | 2020-04-08 13:46 | Anesthesiology Consultation ---
Date of Service April 08, 2020 Assessment & Plan (1) Encounter for pre-operative examination: Chart Review Chart Review: Acceptable Risk for Surgery and Patient NOT seen in Pre Admission Testing Consults Requested none ASA ASA4 Proposed Anesthesia Anesthesia Type: MAC Risk / Benefits Reviewed With: PT / POA / Parent / Guardian, Accepts Plan and Informed Consent Obtained History Surgery Operation Date: 04/08/20 09:00 Proposed Procedures p Esophagogastroduodenoscopy Dr Horowitz - Foreign Horowitz, DO Height/Weight Height: 5 ft 10 in Weight: 67.4 kg Allergies Allergy/AdvReac Type Severity Reaction Status Date / Time No Known Allergies Allergy Unverified 04/08/20 13:19 Medications Home Medications Medication Instructions Recorded Confirmed Last Taken No Known Home Medications 04/07/20 04/07/20 Unknown Active Medications Generic Name Dose Route Start Last Admin Trade Name Freq PRN Reason Stop Dose Admin Pantoprazole Sodium 40 mg/ 10 mls @ 5 mls/min 04/07/20 21:00 04/08/20 08:11 Syringe IV 05/07/20 20:59 5 mls/min BID TOMASZ Administration Sodium Chloride 1,000 mls @ 70 mls/hr 04/07/20 19:52 04/08/20 11:32 Nss 1000ml IV 05/07/20 19:51 70 mls/hr .[id number] TOMASZ Administration NPO Date Last Intake of Fluids: 04/08/20 Time Last Intake of Fluids: 09:00 Last Intake of Fluids Comment: ate some ice chips Date Last Intake of Solids: 04/06/20 Time Last Intake of Solids: 18:00 Past Medical History Medical History Abnormal gallbladder x-ray Atrial flutter with rapid ventricular response CKD (chronic kidney disease) Elevated troponin Hypoalbuminemia Nephrolithiasis Prediabetes Exercise / Class Metabolic Activity II 4-5 Yardwork/Stairs/Walk up hill Past Surgical History Surgical History History of hip replacement Past Anesthesia History No Hx of Anesthesia Complications and No Family Hx of Anesthesia Complications History of PONV No Hx of PONV and No Hx of Motion Sickness Social History Smoking Status: Never smoker Hx Alcohol Use: No Hx Substance Use: No Physical Exam Vital Signs Last Vital Signs Temp 36.6 C 04/08/20 13:26 Pulse 114 H 04/08/20 13:26 Resp 18 04/08/20 13:26 BP 111/66 04/08/20 13:26 Pulse Ox 98 04/08/20 13:26 ENMT Mouth: no dentition abnormality Thyromental Distance: > or= 3.5 Finger Breadths Mallampati Class: II Neck normal visual inspection Respiratory normal respiratory effort Auscultation: lungs clear to auscultation bilaterally Cardiovascular Rate/Rhythm: regular rate; + abnormal rhythm (afib) Psychiatric Orientation: alert Testing Laboratory Results 04/08/20 11:43 04/08/20 04:33 PT 12.4 Seconds (9.0-12.0) H 04/07/20 15:34 INR 1.2 (0.9-1.1) H 04/07/20 15:34 APTT 25.1 Seconds (21.0-31.0) 04/07/20 15:34 Hemoglobin A1c 5.8 % (4.5-5.6) H 04/08/20 04:33 Blood Type A Positive 04/07/20 16:07 Antibody Screen POSITIVE A 04/07/20 16:07
[2020-04-08] MEDS ORDERED: LIDOCAINE HCL 2% 2 ML VIAL/AMP(20MG/ML) INFIL ONE (14:16)
[2020-04-08] MEDS ORDERED: PROPOFOL IV EMULSION 10 MG/ML 20 ML VIAL IV ONE (14:16)
[2020-04-08] MEDS ORDERED: ONDANSETRON INJ 2 MG/ML 2 ML VIAL ONE (14:16)
[2020-04-08] MEDS ORDERED: GLYCOPYRROLATE 0.2 MG/ML VIAL ONE (14:16)
--- NOTE | 2020-04-08 14:46 | Anesthesiology Progress Note ---
Date of Service April 08, 2020 Anesthesia Post Procedure Vital Signs Vital Signs: Temp Pulse Pulse Pulse Resp BP BP 04/08/20 14:40 84/48 L 04/08/20 14:37 108 H 18 66/42 L 04/08/20 13:26 36.6 C 114 H 114 H 18 111/66 04/08/20 11:42 36.7 C 112 H 17 108/67 04/08/20 07:39 36.8 C 107 H 18 112/68 04/08/20 05:05 97 H 18 102/63 04/08/20 03:59 36.8 C 79 18 105/59 L 04/07/20 23:00 36.7 C 82 82 18 110/65 04/07/20 19:45 85 04/07/20 19:25 36.6 C 94 H 18 134/78 04/07/20 19:01 82 17 04/07/20 19:00 82 17 114/66 04/07/20 18:50 81 18 04/07/20 18:40 85 16 04/07/20 18:31 87 18 143/91 H 04/07/20 18:30 86 21 04/07/20 18:20 85 27 H 04/07/20 18:10 89 25 H 04/07/20 18:00 88 18 04/07/20 17:50 92 H 24 04/07/20 17:40 86 22 04/07/20 17:31 85 22 133/72 04/07/20 17:30 85 20 04/07/20 17:20 78 21 04/07/20 17:10 79 14 04/07/20 17:01 80 16 04/07/20 17:00 80 16 120/66 04/07/20 16:50 83 20 04/07/20 16:40 19 04/07/20 16:31 82 18 04/07/20 16:30 82 18 111/62 04/07/20 16:22 79 15 114/57 L 04/07/20 16:20 81 15 114/57 L 04/07/20 16:10 82 20 04/07/20 16:00 89 20 04/07/20 15:53 04/07/20 15:50 78 15 04/07/20 15:45 36.7 C 80 20 101/59 L 04/07/20 15:40 83 18 04/07/20 15:38 83 17 04/07/20 15:31 81 15 101/59 L Pulse Ox 04/08/20 14:40 04/08/20 14:37 98 04/08/20 13:26 98 04/08/20 11:42 97 04/08/20 07:39 97 04/08/20 05:05 97 04/08/20 03:59 98 04/07/20 23:00 97 04/07/20 19:45 04/07/20 19:25 96 04/07/20 19:01 90 04/07/20 19:00 93 04/07/20 18:50 92 04/07/20 18:40 94 04/07/20 18:31 04/07/20 18:30 04/07/20 18:20 04/07/20 18:10 100 04/07/20 18:00 04/07/20 17:50 04/07/20 17:40 04/07/20 17:31 99 04/07/20 17:30 94 04/07/20 17:20 97 04/07/20 17:10 97 04/07/20 17:01 97 04/07/20 17:00 98 04/07/20 16:50 04/07/20 16:40 04/07/20 16:31 98 04/07/20 16:30 99 04/07/20 16:22 98 04/07/20 16:20 98 04/07/20 16:10 04/07/20 16:00 04/07/20 15:53 97 04/07/20 15:50 99 04/07/20 15:45 100 04/07/20 15:40 97 04/07/20 15:38 98 04/07/20 15:31 100 Transfer of Care Handoff Completed per policy Notes Mental Status: alert / awake / arousable Patient Amnestic to Procedure: Yes Nausea / Vomiting: adequately controlled Pain: adequately controlled Airway Patency, RR, SpO2: stable & adequate BP & HR: stable & adequate Hydration State: stable & adequate Anesthetic Complications: no major complications apparent
--- NOTE | 2020-04-08 15:07 | GI REPORT ---
Patient Name: Javier Estevez Procedure Date: 04/08/2020 2:04 PM Date of : 1935 Admit Type: Inpatient Age: 85 Gender: Male Attending MD: Foreign Horowitz DO Procedure: Upper GI endoscopy Providers: Foreign Horowitz DO Referring MD: Lori Zhang Md Indications: Hematemesis Medicines: Monitored Anesthesia Care Complications: No immediate complications. Estimated Blood Loss: Estimated blood loss: none. Procedure: Pre-Anesthesia Assessment: - Prior to the procedure, a History and Physical was performed, and patient medications and allergies were reviewed. The patient's tolerance of previous anesthesia was also reviewed. The risks and benefits of the procedure and the sedation options and risks were discussed with the patient. All questions were answered, and informed consent was obtained. Prior Anticoagulants: The patient has taken no previous anticoagulant or antiplatelet agents. ASA Grade Assessment: IV - A patient with severe systemic disease that is a constant threat to life. After reviewing the risks and benefits, the patient was deemed in satisfactory condition to undergo the procedure. After obtaining informed consent, the endoscope was passed under direct vision. Throughout the procedure, the patient's blood pressure, pulse, and oxygen saturations were monitored continuously. The Endoscope was introduced through the mouth, and advanced to the second part of duodenum. The upper GI endoscopy was accomplished without difficulty. The patient tolerated the procedure well. Findings: The examined esophagus was normal. A 5 mm non-bleeding Rolanda-Griffith tear with stigmata of recent bleeding was found. For hemostasis, two hemostatic clips were successfully placed (MR conditional). There was no bleeding at the end of the procedure. The examined duodenum was normal. Impression: - Normal esophagus. - Rolanda-Griffith tear. Clips (MR conditional) were placed. - Normal examined duodenum. - No specimens collected. Recommendation: - Return patient to [facility] for ongoing care. - Advance diet as tolerated. - Continue present medications. Foreign Horowitz DO 04/08/2020 3:06:33 PM This report has been signed electronically. Note Initiated On: 04/08/2020 2:04 PM Number of Addenda: 0 I attest to the content of the Intraoperative Record and orders documented therein, exceptions below {[id number]}
[2020-04-08 16:11] LABS: Hematocrit (blood only) 25.4 % (42-52); Hemoglobin 8.5 g/dL (14.0-18.0); Mean Corpuscular Hemoglobin 31.7 pg (25-34); Mean Corpuscular Hgb Conc 33.5 g/dL (32-36); Mean Corpuscular Volume 94.8 fL (80-100); Mean Platelet Volume 10.3 fL (7.4-10.4); Platelet Count 226 K/uL (130-400); RDW Coefficient of Variation 15.7 % (11.5-14.5); RDW Standard Deviation 54.2 fL (36.4-46.3); Red Blood Count 2.68 M/uL (4.7-6.1)
[2020-04-09] MEDS: SODIUM CHLORIDE 0.9% 1000ML 1,000 ML IV SCH (02:57)
[2020-04-09 06:19] LABS: Hematocrit (blood only) 21.3 % (42-52); Hemoglobin 7.3 g/dL (14.0-18.0); Mean Corpuscular Hemoglobin 32.6 pg (25-34); Mean Corpuscular Hgb Conc 34.3 g/dL (32-36); Mean Corpuscular Volume 95.1 fL (80-100); Mean Platelet Volume 10.8 fL (7.4-10.4); Platelet Count 191 K/uL (130-400); RDW Coefficient of Variation 15.7 % (11.5-14.5); RDW Standard Deviation 54.3 fL (36.4-46.3); Red Blood Count 2.24 M/uL (4.7-6.1)
[2020-04-09 07:01] LABS: Albumin Globulin Ratio 0.5 (0.9-2); BUN Creatinine Ratio 17.4 (10-20); Bilirubin,Total 0.4 mg/dl (0.2-1); Calcium 7.6 mg/dl (8.5-10.1); Est GFR (African American) 25.4; Est GFR (Non-African American) 21.9; Globulin 3.7 gm/dl (2.5-4.0); Potassium 4.5 mmol/L (3.5-5.1); Total Protein 5.7 gm/dl (6.4-8.2)
[2020-04-09] MEDS: PANTOprazole 40 MG in SYRINGE 0 ML IV SCH (08:14)
--- NOTE | 2020-04-09 08:22 | Anesthesiology Progress Note ---
Date of Service April 09, 2020 Anesthesia Post Procedure Vital Signs Vital Signs: Temp Pulse Pulse Pulse Resp BP Pulse Ox 04/09/20 07:51 36.7 C 80 18 130/71 96 04/09/20 02:56 36.8 C 86 18 114/63 97 04/08/20 23:03 36.6 C 91 H 16 126/62 98 04/08/20 23:00 83 04/08/20 19:19 36.7 C 83 18 147/72 H 99 04/08/20 16:09 36.5 C 94 H 18 145/83 H 94 04/08/20 15:15 84 18 112/64 96 04/08/20 14:53 105 H 18 88/53 L 96 04/08/20 14:40 84/48 L 04/08/20 14:37 108 H 18 66/42 L 98 04/08/20 13:26 36.6 C 114 H 114 H 18 111/66 98 04/08/20 11:42 36.7 C 112 H 17 108/67 97 Notes Mental Status: alert / awake / arousable and participated in evaluation Patient Amnestic to Procedure: Yes Nausea / Vomiting: adequately controlled Pain: adequately controlled Airway Patency, RR, SpO2: stable & adequate BP & HR: stable & adequate Hydration State: stable & adequate Anesthetic Complications: no major complications apparent and Pt Satisfied with anesthetic care
[2020-04-09] MEDS ORDERED: SODIUM CHLORIDE 0.9% 250 ML IV PRN (08:26)
--- NOTE | 2020-04-09 10:32 | Cardiology Progress Note ---
Date of Service April 09, 2020 Assessment & Plan (1) New onset atrial fibrillation: As noted, his rhythm returned to sinus yesterday and he is currently asymptomatic. When he is able to take oral medication, would use low-dose metoprolol (such as metoprolol succinate 25 mg daily) to help maintain sinus rhythm and to control ventricular rate should he develop recurrent atrial fibrillation. Not an anticoagulation candidate currently due to his acute GI bleed, however long-term anticoagulation would be recommended given CHADS-Vasc score of 2. Since he is back in sinus rhythm there is no urgency in making this decision, reassessment by the [facility] in a few weeks could determine the relative risks/benefit of long-term anticoagulation. Since he has had only 1 documented episode of atrial fibrillation occurring in the adrenergic setting of acute GI bleed, an alternative to chronic anticoagulation would be for him to monitor his heart rate/rhythm routinely and report any recurrent atrial fibrillation promptly with initiation of anticoagulation at that time. (2) Elevated troponin I level: Per patient, this is chronically elevated and he has no ischemic symptoms or ECG changes and his echocardiogram showed no wall motion abnormalities. No further work-up of chronically elevated troponin level. (3) Acute upper gastrointestinal bleeding: Per hospital service/GI. (4) Acute blood loss anemia: Contraindication to immediate anticoagulation. (5) CKD (chronic kidney disease): Followed at the [facility]. Admission and Anticipated Discharge Date Admission Date: April 07, 2020 Subjective Uneventful night. Patient spontaneously converted to sinus rhythm around the time of his endoscopy yesterday. Rolanda-Griffith tear noted. He was a bit more anemic today and will be receiving 2 units of packed red blood cells. He was comfortable and had no complaints. He specifically denied any subjective palpitations, chest pain, dyspnea, or lightheadedness. Physical Exam Physical Exam: Normal habitus elderly white male who appears comfortable. Afebrile. BP 98/48, pulse 72 and regular, respirations 14 and unlabored. Skin: No generalized lesions. HEENT: Unremarkable. Neck: Jugular venous pulse at the clavicle at 90 degrees, no carotid bruits. Lungs: Mildly decreased breath sounds but clear bilaterally. Cardiac: regular rhythm, faint heart tones without obvious murmur or gallop. Abdomen: Soft nontender. Extremities: No edema, peripheral pulses intact. Neurologic: Normal affect and conversation, nonfocal. Results & Data ([facility]) Vital Signs (Past 12 Hours) Vital Signs Temp Pulse Pulse Resp BP BP Pulse Ox 04/09/20 10:14 97.7 F 72 14 98/48 L 94 04/09/20 07:51 98.1 F 80 18 130/71 96 04/09/20 02:56 98.2 F 86 18 114/63 97 04/08/20 23:03 97.9 F 91 H 16 126/62 98 04/08/20 23:00 83 Laboratory Results Hemoglobin 7.3. Creatinine 2.55. PG Care Time/CCT Total # of Minutes Spent Total Time Spent with Patient: Total time spent is greater than 50% in coordination of care (as documented) at patient's floor/unit and/or counseling patient: Coding Level of Care Code 25168 Subseq Hosp Care Lvl 3 Diagnoses New onset atrial fibrillation I48.91 Elevated troponin I level R79.89 Acute upper gastrointestinal bleeding K92.2 Acute blood loss anemia D62 CKD (chronic kidney disease) N18.9
--- NOTE | 2020-04-09 10:54 | Gastroenterology Progress Note ---
Date of Service April 09, 2020 Assessment & Plan (1) GI bleed: 2/2 Rolanda Griffith tear. H/H 7.3/21.3. -Monitor H/H -No further signs of bleeding at present -Continue Protonix 40 mg BID Admission and Anticipated Discharge Date Admission Date: April 07, 2020 Supervising Physician Co-Signing Physician Notes Agree with SLIME Goncalves Doing better today, no overt GI bleeding Abd: Soft, NT, ND Continue Pantoprazole 40 mg PO BID OK to restart anticoagulation as per hospitalist team. Discussed case with Dr. Zhang Subjective Patient is an 85 yo male with hematemesis who underwent an EGD on 04/08 that indicated a Rolanda Griffith tear. He denies further vomiting/hematemesis. He denies abdominal pain, chest pain, or shortness of breath. He is feeling well at present. His H/H is 7.3/21.3. BUN/Cr 44/2.55. He continues Protonix. Review of Systems Constitutional: no fever and no chills Eyes: no problem reported Respiratory: no cough and no dyspnea Cardiovascular: no chest pain Gastrointestinal: no abdominal pain, no nausea, no vomiting, no hematemesis and no melena Physical Exam Constitutional: WD/WN, vitals as above Respiratory: normal respiratory effort Cardiovascular: Extremities: no edema Gastrointestinal (Abdomen): Inspection/Auscultation: abdomen normal to inspection; abdomen not distended Percussion/Palpation: abdomen soft; abdomen nontender Skin: no rashes Psychiatric: Orientation: alert and oriented x 3 Results & Data Results & Data ([facility]) Vital Signs (Past 12 Hours) Vital Signs Temp Pulse Pulse Resp BP BP Pulse Ox 04/09/20 10:47 36.8 C 72 14 100/59 L 99 04/09/20 10:33 36.8 C 72 14 93/51 L 99 04/09/20 10:27 36.5 C 71 14 95/49 L 100 04/09/20 10:14 36.5 C 72 14 98/48 L 94 04/09/20 07:51 36.7 C 80 18 130/71 96 04/09/20 02:56 36.8 C 86 18 114/63 97 04/08/20 23:03 36.6 C 91 H 16 126/62 98 04/08/20 23:00 83 PG Care Time/CCT Total # of Minutes Spent Total Time Spent with Patient: Total time spent is greater than 50% in coordination of care (as documented) at patient's floor/unit and/or counseling patient: Coding Level of Care Code 83641 Subseq Hosp Care Lvl 2 Diagnoses GI bleed K92.2 GI bleed type/associated pathology: unspecified gastrointestinal hemorrhage type (1) GI bleed GI bleed type/associated pathology: unspecified gastrointestinal hemorrhage type Qualified Code(s): K92.2 - Gastrointestinal hemorrhage, unspecified
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
== END 2020-04-09 16:20 | disposition home or self-care (01) | DRG 369 ==
LOC: ED 15:24 → 2S 17:53 → SUATTDRO 17:53 → 2S 19:09